=== PATIENT | female | born 1985 | race Caucasian/White ===

== ENCOUNTER 2022-06-10 19:35 | Emergency (ER) | payer OTHER ==
--- NOTE | 2022-06-10 20:41 | ED Physician Documentation ---
PD HPI HEADACHE - Stated complaint Stated Complaint: CONGESTION - Chief complaint Chief Complaint: Heent - History obtained from History obtained from: Patient - Additional information Additional information: She got sick over the last few days, started with a scratchy throat and then developed more sinus congestion. Actually getting better, but was checking with her daughter anyway so wanted evaluated. No shortness of breath no fevers. No possibility of . Review of Systems Constitutional: denies: Fever, Chills Nose: reports: Rhinorrhea / runny nose Throat: reports: Sore throat PD PAST MEDICAL HISTORY - Past Surgical History Past Surgical History: No - Present Medications Home Medications: Ambulatory Orders Medication Instructions Recorded Confirmed Cetirizine [ZyrTEC] 04/25/22 Escitalopram Oxalate [Lexapro] 04/25/22 HYDROcod/ACETAM 5/325 [[place] 5/325] 1 - 2 ea PO Q6H PRN #14 tablet 04/25/22 Non Formulary 04/25/22 Rabeprazole Sodium [Aciphex 04/25/22 Sprinkle] busPIRone [Buspar] 04/25/22 methocarbamoL [Robaxin] 500 mg PO Q6H PRN #20 tablet 04/25/22 - Allergies Allergies/Adverse Reactions: Allergies Allergy/AdvReac Type Severity Reaction Status Date / Time tobramycin Allergy Itching Verified 06/10/22 19:58 PD ED PE NORMAL - Vitals Vital signs reviewed: Yes - General General: Alert and oriented X 3 - HEENT HEENT: Other (TMs and visualized portions of the oropharynx were negative/normal.) - Respiratory Respiratory: No respiratory distress, Clear bilaterally - Abdomen Abdomen: Non tender - Derm Derm: No rash - Neuro Neuro: Alert and oriented X 3, Normal speech Results - Vitals Vitals: Vital Signs - 24 hr 06/10/22 19:54 Temperature 37.3 C Heart Rate 110 H Respiratory 18 Rate Blood Pressure 130/94 H O2 Saturation 97 Oxygen O2 Source Room air PD MEDICAL DECISION MAKING - ED course ED course: Her child is also in the department today and came up positive for rhinovirus/enterovirus and I suspect that is causative for mom as well. Conservative care was advised. Departure - Departure Disposition: 01 Home, Self Care Clinical Impression: Viral URI Condition: Good Record reviewed to determine appropriate education?: Yes Instructions: ED Viral Syndrome Comments: It is reasonable to expect that you probably have the same rhinovirus/enterovirus that your child has. No specific therapy is needed except for symptoms, ibuprofen for pain, you can take an [id number] decongestant such as Sudafed. Drink plenty of fluids and return if worse. Forms: Activity restrictions
[2022-06-10 21:24] VITALS: BP 128/76
== END 2022-06-10 21:23 | disposition home or self-care (01) ==
LOC: ED 19:35
DX: J06.9 Acute upper respiratory infection, unspecified (principal)
CPT/HCPCS: 99282

== ENCOUNTER 2022-09-14 05:50 | Emergency (ER) | payer OTHER ==
[2022-09-14 06:31] LABS: RAPID STREP SCREEN Negative (Negative)
--- NOTE | 2022-09-14 08:09 | ED Physician Documentation ---
PD HPI URI - Stated complaint Stated Complaint: FEVER, SORE THROAT, EAR PX - Chief complaint Chief Complaint: Heent - History obtained from History obtained from: Patient - History of Present Illness Timing - onset: How many days ago (2) Timing duration: Days (2) Timing details: Gradual onset Associated symptoms: Nasal congestion, Rhinorrhea, Dry cough. No: Fever, Chills - Additional information Additional information: 36-year-old female states that she started to become ill yesterday. Cough, congestion, sore throat. Took ibuprofen and feels better. She states that she had influenza last month and COVID before that. She took a home COVID test which was negative. Better with Motrin, worse with swallowing, eating and drinking. Denies any possibility of . Review of Systems Constitutional: denies: Fever, Chills GI: denies: Nausea, Vomiting, Diarrhea Skin: denies: Rash Musculoskeletal: denies: Neck pain, Back pain Neurologic: denies: Headache PD PAST MEDICAL HISTORY - Past Medical History Past Medical History: Yes Cardiovascular: None Respiratory: None Neuro: None Endocrine/Autoimmune: None GI: GERD CARDIOVASCULAR SPECIALIST: None : None HEENT: None Psych: Depression Musculoskeletal: None Derm: None - Past Surgical History Past Surgical History: No - Present Medications Home Medications: Ambulatory Orders Medication Instructions Recorded Confirmed Cetirizine [ZyrTEC] 04/25/22 Escitalopram Oxalate [Lexapro] 04/25/22 HYDROcod/ACETAM 5/325 [[place] 5/325] 1 - 2 ea PO Q6H PRN #14 tablet 04/25/22 Non Formulary 04/25/22 Rabeprazole Sodium [Aciphex 04/25/22 Sprinkle] busPIRone [Buspar] 04/25/22 methocarbamoL [Robaxin] 500 mg PO Q6H PRN #20 tablet 04/25/22 Benzonatate [Tessalon] 200 mg PO TID PRN #30 cap 09/14/22 Cetirizine HCl/Pseudoephedrine 1 each PO BID PRN #30 tab 09/14/22 [Zyrtec-D Tablet] Ibuprofen [Motrin] 800 mg PO Q8H PRN #30 tablet 09/14/22 - Allergies Allergies/Adverse Reactions: Allergies Allergy/AdvReac Type Severity Reaction Status Date / Time tobramycin Allergy Itching Verified 09/14/22 06:18 - Social History Does the pt smoke?: No Smoking Status: Never smoker Does the pt drink ETOH?: No Does the pt have substance abuse?: No - Immunizations Immunizations are current?: Yes - POLST Patient has POLST: No PD ED PE NORMAL - Vitals Vital signs reviewed: Yes - General General: Alert and oriented X 3, No acute distress - HEENT HEENT: Ears normal, Moist mucous membranes, Pharynx benign - Neck Neck: Supple, no meningeal sign - Cardiac Cardiac: RRR, Strong equal pulses - Respiratory Respiratory: No respiratory distress, Clear bilaterally - Abdomen Abdomen: Soft, Non tender, Non distended - Derm Derm: Warm and dry, No rash - Neuro Neuro: Alert and oriented X 3 - Psych Psych: Normal mood, Normal affect Results - Vitals Vitals: Vital Signs - 24 hr 09/14/22 09/14/22 06:16 08:22 Temperature 36.0 C L Heart Rate 135 H 114 H Respiratory 16 18 Rate Blood Pressure 120/79 136/83 H O2 Saturation 98 98 Oxygen O2 Source Room air - Labs Labs: Laboratory Tests 09/14/22 09/14/22 06:15 Unknown Nasal Adenovirus (PCR) NOT DETECTED Nasal B. parapertussis DNA (PCR) NOT DETECTED Nasal Coronavir 229E PCR NOT DETECTED Nasal Coronavir HKU1 PCR NOT DETECTED Nasal Coronavir NL63 PCR NOT DETECTED Nasal Coronavir OC43 PCR NOT DETECTED Nasal Enterovir/Rhinovir PCR NOT DETECTED Nasal Influenza B PCR NOT DETECTED Nasal Influenza A PCR NOT DETECTED Nasal Parainfluen 1 PCR NOT DETECTED Nasal Parainfluen 2 PCR NOT DETECTED Nasal Parainfluen 3 PCR NOT DETECTED Nasal Parainfluen 4 PCR NOT DETECTED Nasal RSV (PCR) NOT DETECTED Nasal B.pertussis DNA PCR NOT DETECTED Nasal C.pneumoniae (PCR) NOT DETECTED [place] Human Metapneumo PCR NOT DETECTED Nasal M.pneumoniae (PCR) NOT DETECTED Nasal SARS-CoV-2 (PCR) NOT DETECTED Group A Strep Rapid Negative PD Medical Decision Making - ED course Complexity details: reviewed results, considered differential, d/w patient ED course: Patient is well-appearing, nontoxic. Afebrile. Rapid strep is negative. Respiratory PCR is pending. We will place on Motrin, Tessalon and Zyrtec-D. No hypoxia. No respiratory distress. Patient counseled regarding signs and symptoms for which I believe and urgent re-evaluation would be necessary. Patient with good understanding of and agreement to plan and is comfortable going home at this time This document was made in part using voice recognition software. While efforts are made to proofread this document, sound alike and grammatical errors may occur. Respiratory PCR is negative. Departure - Departure Disposition: Home, Self Care Clinical Impression: Viral URI Condition: Good Instructions: ED Viral Syndrome Follow-Up: your,doctor as needed [Other] Prescriptions: Ibuprofen [Motrin] 800 mg PO Q8H PRN #30 tablet PRN Reason: PAIN &/OR FEVER Benzonatate [Tessalon] 200 mg PO TID PRN #30 cap PRN Reason: Cough Cetirizine HCl/Pseudoephedrine [Zyrtec-D Tablet] 1 each PO BID PRN #30 tab PRN Reason: nasal congestion Comments: Please follow-up with your doctor for further care. Return if you worsen. Drink plenty of fluids and rest. Your viral panel will be back later today. You can check the results on your patient portal or we will call you with the results. Your prescriptions were sent to the [facility] pharmacy. Forms: Activity restrictions Discharge Date/Time: 09/14/22 08:22
[2022-09-14 08:23] VITALS: BP 136/83
[2022-09-14 09:19] LABS: CORONAVIRUS 229E-RESP PCR NOT DETECTED; CORONAVIRUS HKU1-RESP PCR NOT DETECTED; CORONAVIRUS NL63-RESP PCR NOT DETECTED; CORONAVIRUS OC43-RESP PCR NOT DETECTED; HUMAN METAPNEUMOVIRUS NOT DETECTED; INFLUENZA A- RESP PCR PANEL NOT DETECTED; RHINOVIRUS/ENTEROVIRUS NOT DETECTED; SARS-CoV-2 -RESP PCR PANEL NOT DETECTED
[2022-09-14 09:20] LABS: B. PARAPERTUSSIS- RESP PCR PAN NOT DETECTED; B. PERTUSSIS- RESP PCR PANEL NOT DETECTED; C. PNEUMONIAE- RESP PCR PANEL NOT DETECTED; INFLUENZA B - RESP PCR PANEL NOT DETECTED; M. PNEUMONIAE- RESP PCR PANEL NOT DETECTED; PARAINFLUENZA VIRUS 1 NOT DETECTED; PARAINFLUENZA VIRUS 2 NOT DETECTED; PARAINFLUENZA VIRUS 3 NOT DETECTED; PARAINFLUENZA VIRUS 4 NOT DETECTED; RSV- RESP PCR PANEL NOT DETECTED
== END 2022-09-14 08:22 | disposition home or self-care (01) ==
LOC: ED 05:50
DX: J06.9 Acute upper respiratory infection, unspecified (principal); Z20.822 Contact with and (suspected) exposure to COVID-19
CPT/HCPCS: 87070; 87430; 87633; 99282; 99283

== ENCOUNTER 2023-11-10 15:01 | Outpatient (CLI) | payer OTHER ==
--- NOTE | 2023-11-11 18:50 | Ultrasound Report ---
PROCEDURE: Pelvic w/Transvaginal INDICATIONS: FEMALE PELVIC PAIN TECHNIQUE: Real-time scanning was performed of the pelvic organs, with image documentation. Additional endovagi nal scanning was necessary due to incomplete visualization of the adnexal and endometrial structures by transabdominal scanning. COMPARISON: None. FINDINGS: Uterus: Uterus is anteverted and normal in size at 7.8 x 2.8 x 3.7 cm. The myometrium is homogeneou s. The endometrium measures 0.7 mm in combined thickness. There is a small volume fluid seen within the cervical canal measuring approximately 1.5 x 0.4 x 0.6 cm Ovaries: The right ovary measures 1.9 x 2.5 x 1.7 cm, with a calculated ovarian volume of 4.2 cc. T he left ovary measures 2.3 x 1.8 x 1.6 cm, with a calculated ovarian volume of 3.5 cc. The ovarie s have a normal sonographic appearance. Less than 12 follicles can be seen in each ovary. No adnexa l masses are seen. No cystic lesions measuring greater than 3 cm. Other: No pathologic free abdominal or pelvic fluid. IMPRESSION: No sonographic appearance of the uterus and endometrium. Small volume fluid in the cervical canal measuring up to 1.5 cm. Suboptimal view of the bilateral ovaries as seen only on transabdominal view. No gross adnexal abnorm alities visualized. Reviewed by: Margot Rios MD on 11/11/2023 4:48 PM PST Approved by: Margot Rios MD on 11/11/2023 4:48 PM PST Station ID: [id number]
== END 2023-11-10 15:02 | disposition home or self-care (01) ==
LOC: DI 15:01
PROVIDERS: ATTEND Nurse Practitioner
DX: R10.2 Pelvic and perineal pain (principal)

== ENCOUNTER 2024-01-04 09:30 | Outpatient (CLI) | payer OTHER | END 2024-01-04 09:45 | disposition home or self-care (01) | LOC: LAB.N 09:30 | PROVIDERS: ATTEND Physician Assistant Medical | DX: J02.9 Acute pharyngitis, unspecified (principal) | CPT/HCPCS: 87070 ==